=== PATIENT | male | born 1935 | race Asian ===

== ENCOUNTER 2023-01-27 20:55 | Inpatient (IN) | payer OTHER ==
[~2023-01-27] VITALS: Ht 165.1 cm; Wt 46.3 kg
[2023-01-27 21:00] VITALS: BP_SYST 104; PULSE 89; RESP 19; TEMP 98.9; O2SAT 91
[2023-01-27 22:36] LABS: BASOPHILS % (AUTO) 0.1 % (0.0-2.0); HEMATOCRIT 28.8 % (36-54); HEMOGLOBIN 9.6 g/dL (14.0-18.0); LYMPHOCYTES # (AUTO) 0.3 K/uL (1.0-5.5); MEAN CORPUSCULAR HEMOGLOBIN 31 pg (27-31); MEAN CORPUSCULAR HGB CONC 33 % (32-36); MEAN CORPUSCULAR VOLUME 94 fL (79.0-98.0); MONOCYTES # (AUTO) 0.6 K/uL (0.0-1.0); MONOCYTES % (AUTO) 3.8 % (1.7-9.3); NEUTROPHILS % (AUTO) 94.1 % (40.0-70.0); PLATELET COUNT (AUTO) 211 K/uL (130-430); RED BLOOD CELL COUNT(AUTO) 3.06 MIL/uL (4.2-6.2); RED CELL DISTRIBUTION WIDTH 14.5 % (9.0-15.0)
[2023-01-27] MEDS ORDERED: NACL 0.9% 1,000 ML IV ONE (22:45)
[2023-01-27] MEDS ORDERED: PIPERACILLIN/TAZO 3.375 GM in NS 50 ML IV ONE (23:00)
[2023-01-27] MEDS ORDERED: PIPERACILLIN/TAZOBACTAM 3.375 GM/VIAL (ZOSYN) IV ONE (23:28)
[2023-01-27 23:29] LABS: INR 1.2 (0.80-1.20); PROTHROMBIN TIME 12.2 SECS (9.5-12.5)
[2023-01-27 23:53] LABS: ALANINE AMINOTRANSFERASE 13 U/L (12-78); ALBUMIN 2.7 g/dL (3.4-4.8); ANION GAP 16 (5-15); ASPARTATE AMINOTRANSFERASE 15 U/L (10-37); CALCIUM 8.2 mg/dL (8.4-11.0); CARBON DIOXIDE 25 mmol/L (23-29); CHLORIDE 116 mmol/L (98-107); CREATINE KINASE, TOTAL 33 U/L (39-308); CREATININE 3.25 mg/dL (0.55-1.30); GLUCOSE 119 mg/dL (74-106); SALICYLATE 3 mg/dL (3-30); SODIUM SERUM 157 mmol/L (136-145); TOTAL BILIRUBIN 0.7 mg/dL (0.0-1.0); TOTAL PROTEIN, SERUM 6.3 g/dL (6.4-8.3); UREA NITROGEN, BLOOD 95 mg/dL (8-21)
[2023-01-27] MEDS ORDERED: LOSA-415 PO (23:55)
[2023-01-27] MEDS ORDERED: HYDR25TA4 PO (23:55)
[2023-01-27] MEDS ORDERED: DONE10TA44 PO (23:55)
[2023-01-28] VITALS (10 sets, daily range): BP systolic 98–154; PULSE 56–84; RESP 17–18; TEMP 97.4–98.6; O2SAT 95–100
[2023-01-28 00:03] LABS: ACETAMINOPHEN < 1 ug/mL (1-30); ALCOHOL, BLOOD < 3 mg/dL (<10)
[2023-01-28 00:05] LABS: POTASSIUM 2.1 mmol/L (3.5-5.1)
[2023-01-28] MEDS ORDERED: KCL 10 mEq in 50 mL (PREMIX) 50 ML IV ONE (00:30)
[2023-01-28 00:41] LABS: ACETONE, SERUM NEGATIVE (NEGATIVE)
[2023-01-28 00:50] LABS: BILIRUBIN,URINE NEGATIVE (NEGATIVE); BLOOD, URINE 3+ (NEGATIVE); COLOR,URINE YELLOW (YELLOW); GLUCOSE,URINE NEGATIVE (NEGATIVE); KETONES,URINE NEGATIVE (NEGATIVE); LEUKOCYTE ESTERASE ,URINE 1+ (NEGATIVE); NITRITE, URINE NEGATIVE (NEGATIVE); PH,URINE 5.5 (5.0-8.0); PROTEIN URINE NEGATIVE (NEGATIVE); UROBILINOGEN,URINE 0.2 (0.2-1.0)
[2023-01-28 01:13] LABS: INFLUENZA TYPE A negative (NEGATIVE); INFLUENZA TYPE B NEGATIVE (NEGATIVE)
[2023-01-28 01:16] LABS: COVID19 ANTIGEN SOFIA FIA NEGATIVE (NEGATIVE)
[2023-01-28 01:17] LABS: BARBITURATE, URINE NEGATIVE (NEG <=200); BENZODIAZEPINE, URINE NEGATIVE (NEG <=150); CANNABINOID, URINE NEGATIVE (NEG <=50); COCAINE, URINE NEGATIVE (NEG <=150); METHAMPHETAMINES SCREEN,URINE NEGATIVE (NEG <=500); OPIATE, URINE NEGATIVE (NEG <=100); PHENCYCLIDINE SCREEN,URINE NEGATIVE (NEG <=25); URINE AMPHETAMINE NEGATIVE (NEG <=500); URINE METHADONE NEGATIVE (NEG <=200); URINE OXYCODONE SCREEN NEGATIVE (NEG <=100); URINE PROPOXYPHENE SCREEN NEGATIVE (NEG <=300)
[2023-01-28 01:18] LABS: UR TRICYCLIC ANTIDEPRESSANTS NEGATIVE (NEG <=300)
[2023-01-28 01:24] LABS: CLARITY/URINE CLOUDY (CLEAR)
[2023-01-28 01:26] LABS: BACTERIA,URINE FEW /HPF (None Seen); RBC,URINE >100 /HPF (0-3)
[2023-01-28 01:35] LABS: PHOSPHORUS 4.7 mg/dL (2.7-4.5)
[2023-01-28] MEDS: D5/0.45 NS 1,000 ML IV SCH ×2 (04:22→09:29)
[2023-01-28] MEDS: IPRATROPIUM/ALBUTEROL SULFATE 3 ML AMPUL.NEB (DUONEB) INH SCH (08:09)
[2023-01-28 11:26] LABS: BASOPHILS % (AUTO) 0.3 % (0.0-2.0); HEMATOCRIT 27.1 % (36-54); HEMOGLOBIN 8.9 g/dL (14.0-18.0); LYMPHOCYTES # (AUTO) 0.3 K/uL (1.0-5.5); LYMPHOCYTES % (AUTO) 2.1 % (20.5-51.5); MEAN CORPUSCULAR HEMOGLOBIN 31 pg (27-31); MEAN CORPUSCULAR HGB CONC 33 % (32-36); MEAN CORPUSCULAR VOLUME 95 fL (79.0-98.0); MONOCYTES # (AUTO) 0.5 K/uL (0.0-1.0); MONOCYTES % (AUTO) 4.2 % (1.7-9.3); NEUTROPHILS # (AUTO) 11.2 K/uL (1.8-7.7); NEUTROPHILS % (AUTO) 93.4 % (40.0-70.0); PLATELET COUNT (AUTO) 188 K/uL (130-430); RED BLOOD CELL COUNT(AUTO) 2.86 MIL/uL (4.2-6.2); RED CELL DISTRIBUTION WIDTH 14.8 % (9.0-15.0)
[2023-01-28 11:39] LABS: ANION GAP 12 (5-15); CALCIUM 7.9 mg/dL (8.4-11.0); CARBON DIOXIDE 26 mmol/L (23-29); CHLORIDE 119 mmol/L (98-107); CREATININE 2.62 mg/dL (0.55-1.30); GLUCOSE 134 mg/dL (74-106); SODIUM SERUM 157 mmol/L (136-145); UREA NITROGEN, BLOOD 84 mg/dL (8-21)
[2023-01-28] MEDS: LR 1,000 ML IV SCH ×2 (11:39→23:05)
[2023-01-28 11:42] LABS: POTASSIUM 2.1 mmol/L (3.5-5.1)
[2023-01-28] MEDS: POTASSIUM CHLORIDE 40 MEQ in NS 250 ML IV SCH ×2 (11:58→17:27)
[2023-01-28] MEDS: metroNIDAZOLE 250 mg/NS 50 ML IV SCH ×2 (16:18→23:03)
[2023-01-28] MEDS: LEVOFLOXACIN 250 MG/D5W 50 ML IV SCH (21:36)
[2023-01-29] VITALS (9 sets, daily range): BP systolic 129–166; PULSE 54–78; RESP 15–21; TEMP 97.1–98.5; O2SAT 96–99
[2023-01-29 05:26] LABS: EOSINOPHILS % (AUTO) 0.3 % (0.0-4.0); HEMATOCRIT 24.9 % (36-54); HEMOGLOBIN 8.2 g/dL (14.0-18.0); LYMPHOCYTES # (AUTO) 0.4 K/uL (1.0-5.5); LYMPHOCYTES % (AUTO) 4.5 % (20.5-51.5); MEAN CORPUSCULAR HEMOGLOBIN 31 pg (27-31); MEAN CORPUSCULAR HGB CONC 33 % (32-36); MEAN CORPUSCULAR VOLUME 95 fL (79.0-98.0); MONOCYTES # (AUTO) 0.5 K/uL (0.0-1.0); MONOCYTES % (AUTO) 5.8 % (1.7-9.3); NEUTROPHILS # (AUTO) 8.1 K/uL (1.8-7.7); NEUTROPHILS % (AUTO) 89.4 % (40.0-70.0); PLATELET COUNT (AUTO) 163 K/uL (130-430); RED BLOOD CELL COUNT(AUTO) 2.63 MIL/uL (4.2-6.2); RED CELL DISTRIBUTION WIDTH 14.7 % (9.0-15.0)
[2023-01-29 05:55] LABS: ALANINE AMINOTRANSFERASE 9 U/L (12-78); ALBUMIN 2.1 g/dL (3.4-4.8); ANION GAP 11 (5-15); ASPARTATE AMINOTRANSFERASE 16 U/L (10-37); CARBON DIOXIDE 27 mmol/L (23-29); CREATININE 2.07 mg/dL (0.55-1.30); GLUCOSE 103 mg/dL (74-106); TOTAL BILIRUBIN 0.4 mg/dL (0.0-1.0); TOTAL PROTEIN, SERUM 5.2 g/dL (6.4-8.3); UREA NITROGEN, BLOOD 64 mg/dL (8-21)
[2023-01-29] MEDS: LR 1,000 ML IV SCH (06:15)
[2023-01-29 06:16] LABS: CHLORIDE 125 mmol/L (98-107); POTASSIUM 2.6 mmol/L (3.5-5.1); SODIUM SERUM 163 mmol/L (136-145)
[2023-01-29] MEDS: metroNIDAZOLE 250 mg/NS 50 ML IV SCH ×3 (06:44→23:12)
[2023-01-29] MEDS ORDERED: CEFAZOLIN 1 GM IVPB PREMIX 50 ML IV ONE (08:00)
[2023-01-29] MEDS: IPRATROPIUM/ALBUTEROL SULFATE 3 ML AMPUL.NEB (DUONEB) INH SCH ×3 (08:49→20:24)
[2023-01-29] MEDS: POTASSIUM CHLORIDE 40 MEQ in NS 250 ML IV SCH ×2 (08:53→13:27)
[2023-01-29] MEDS: KCL 20 mEq in D5W 1000 mL 1,000 ML IV SCH ×2 (12:33→22:00)
[2023-01-29 12:54] LABS: TOTAL IRON BIND. CAPACITY 112 ug/dL (250-450)
[2023-01-29 13:00] LABS: FREE T4 (FREE THYROXINE) 1.4 ng/dL (0.6-1.6); THYROID STIMULATING HORMONE 0.15 uIu/mL (0.34-4.82)
[2023-01-29] MEDS: LEVOFLOXACIN 250 MG/D5W 50 ML IV SCH (20:56)
[2023-01-30] VITALS (10 sets, daily range): BP systolic 128–160; PULSE 60–82; RESP 15–18; TEMP 97.4–98.6; O2SAT 97–100
[2023-01-30 05:28] LABS: BASOPHILS % (AUTO) 0.1 % (0.0-2.0); EOSINOPHILS # (AUTO) 0.2 K/uL (0.0-0.4); HEMATOCRIT 26.7 % (36-54); HEMOGLOBIN 8.7 g/dL (14.0-18.0); LYMPHOCYTES # (AUTO) 0.4 K/uL (1.0-5.5); LYMPHOCYTES % (AUTO) 5.7 % (20.5-51.5); MEAN CORPUSCULAR HEMOGLOBIN 31 pg (27-31); MEAN CORPUSCULAR HGB CONC 33 % (32-36); MEAN CORPUSCULAR VOLUME 94 fL (79.0-98.0); MONOCYTES # (AUTO) 0.4 K/uL (0.0-1.0); MONOCYTES % (AUTO) 5.9 % (1.7-9.3); NEUTROPHILS # (AUTO) 6.4 K/uL (1.8-7.7); NEUTROPHILS % (AUTO) 85.3 % (40.0-70.0); PLATELET COUNT (AUTO) 178 K/uL (130-430); RED BLOOD CELL COUNT(AUTO) 2.83 MIL/uL (4.2-6.2); RED CELL DISTRIBUTION WIDTH 14.6 % (9.0-15.0); WHITE BLOOD COUNT (AUTO) 7.5 K/uL (4.8-10.8)
[2023-01-30] MEDS: metroNIDAZOLE 250 mg/NS 50 ML IV SCH ×3 (05:43→22:40)
[2023-01-30 06:06] LABS: FOLATE (FOLIC ACID) 19.3 ng/mL (>3.0)
[2023-01-30 06:13] LABS: ANION GAP 10 (5-15); CALCIUM 8.1 mg/dL (8.4-11.0); CARBON DIOXIDE 27 mmol/L (23-29); CREATININE 1.61 mg/dL (0.55-1.30); GLUCOSE 116 mg/dL (74-106); PHOSPHORUS 1.9 mg/dL (2.7-4.5); UREA NITROGEN, BLOOD 42 mg/dL (8-21)
[2023-01-30 06:16] LABS: CHLORIDE 127 mmol/L (98-107); POTASSIUM 2.8 mmol/L (3.5-5.1); SODIUM SERUM 164 mmol/L (136-145)
[2023-01-30] MEDS ORDERED: KCL 40 mEq in D5W 1000 mL 1,000 ML IV SCH (07:15)
[2023-01-30] MEDS: IPRATROPIUM/ALBUTEROL SULFATE 3 ML AMPUL.NEB (DUONEB) INH SCH ×4 (07:50→20:08)
[2023-01-30] MEDS ORDERED: CEFAZOLIN 1 GM IVPB PREMIX 50 ML IV ONE ×2 (08:00→08:59)
[2023-01-30] MEDS: POTASSIUM CHLORIDE 40 MEQ in D5W 250 ML IV SCH ×2 (08:46→13:22)
[2023-01-30] MEDS: KCL 20 mEq in D5W 1000 mL 1,000 ML IV SCH ×2 (08:46→17:25)
[2023-01-30] MEDS ORDERED: CEFAZOLIN 2 GM IVPB PREMIX 50 ML IV ONE (08:51)
[2023-01-30] MEDS ORDERED: MEPERIDINE 100 MG INJ. 100 MG/ML VIAL ONE (09:08)
[2023-01-30] MEDS ORDERED: MIDAZOLAM HCL 5 MG/5 ML VIAL ONE (09:08)
[2023-01-30] MEDS ORDERED: PANTOPRAZOLE SODIUM 40 MG TAB PO ONE (11:00)
[2023-01-30] MEDS ORDERED: PANTOPRAZOLE SODIUM 40 MG/VIAL (PROTONIX) IVP ONE (12:00)
[2023-01-30] MEDS ORDERED: K PHOS 15 MM in D5W 250 ML IV ONE (17:00)
[2023-01-30] MEDS: LEVOFLOXACIN 250 MG/D5W 50 ML IV SCH (20:28)
[2023-01-31] VITALS (9 sets, daily range): BP systolic 121–143; PULSE 70–85; RESP 14–19; TEMP 97.7–98.6; O2SAT 95–100
[2023-01-31] MEDS: KCL 20 mEq in D5W 1000 mL 1,000 ML IV SCH (01:43)
[2023-01-31] MEDS: metroNIDAZOLE 250 mg/NS 50 ML IV SCH ×3 (06:10→22:55)
[2023-01-31 07:12] LABS: BASOPHILS % (AUTO) 0.3 % (0.0-2.0); EOSINOPHILS # (AUTO) 0.3 K/uL (0.0-0.4); EOSINOPHILS % (AUTO) 4.9 % (0.0-4.0); HEMATOCRIT 23.8 % (36-54); HEMOGLOBIN 7.9 g/dL (14.0-18.0); LYMPHOCYTES # (AUTO) 0.5 K/uL (1.0-5.5); LYMPHOCYTES % (AUTO) 6.6 % (20.5-51.5); MEAN CORPUSCULAR HEMOGLOBIN 31 pg (27-31); MEAN CORPUSCULAR HGB CONC 33 % (32-36); MEAN CORPUSCULAR VOLUME 94 fL (79.0-98.0); MONOCYTES # (AUTO) 0.4 K/uL (0.0-1.0); MONOCYTES % (AUTO) 5.5 % (1.7-9.3); NEUTROPHILS # (AUTO) 5.8 K/uL (1.8-7.7); NEUTROPHILS % (AUTO) 82.7 % (40.0-70.0); PLATELET COUNT (AUTO) 134 K/uL (130-430); RED BLOOD CELL COUNT(AUTO) 2.54 MIL/uL (4.2-6.2); RED CELL DISTRIBUTION WIDTH 14.4 % (9.0-15.0)
[2023-01-31 07:15] LABS: ALANINE AMINOTRANSFERASE 11 U/L (12-78); ALBUMIN 2.1 g/dL (3.4-4.8); ANION GAP 8 (5-15); ASPARTATE AMINOTRANSFERASE 22 U/L (10-37); CALCIUM 7.1 mg/dL (8.4-11.0); CARBON DIOXIDE 25 mmol/L (23-29); CREATININE 1.32 mg/dL (0.55-1.30); GLUCOSE 146 mg/dL (74-106); POTASSIUM 3.5 mmol/L (3.5-5.1); SODIUM SERUM 156 mmol/L (136-145); TOTAL BILIRUBIN 0.4 mg/dL (0.0-1.0); TOTAL PROTEIN, SERUM 4.8 g/dL (6.4-8.3); UREA NITROGEN, BLOOD 24 mg/dL (8-21)
[2023-01-31] MEDS: IPRATROPIUM/ALBUTEROL SULFATE 3 ML AMPUL.NEB (DUONEB) INH SCH ×3 (07:23→20:53)
[2023-01-31 07:48] LABS: CHLORIDE 123 mmol/L (98-107)
[2023-01-31] MEDS ORDERED: PANTOPRAZOLE SODIUM 40 MG TAB PO SCH (09:00)
[2023-01-31] MEDS: MULTIVITAMINS TAB 1 TABLET GT SCH (09:09)
[2023-01-31] MEDS: PANTOPRAZOLE SODIUM 40 MG/VIAL (PROTONIX) IVP SCH (09:54)
[2023-01-31] MEDS ORDERED: TAMS0.4C96 PO ×2 (13:12)
[2023-01-31] MEDS ORDERED: TAMSULOSIN HCL 0.4 MG CAP PO ONE (14:00)
[2023-01-31] MEDS: TAMSULOSIN HCL 0.4 MG CAP PO SCH (22:23)
[2023-01-31] MEDS: LEVOFLOXACIN 250 MG/D5W 50 ML IV SCH (22:24)
[2023-02-01] VITALS (7 sets, daily range): BP systolic 112–127; PULSE 72–95; RESP 16–19; TEMP 97.9–98.6; O2SAT 96–100
[2023-02-01] MEDS: KCL 20 mEq in D5W 1000 mL 1,000 ML IV SCH ×2 (02:11→10:51)
[2023-02-01] MEDS ORDERED: AMPICILLIN SODIUM/SULBACTAM NA 1.5 GM VIAL ONE (05:20)
[2023-02-01] MEDS: metroNIDAZOLE 250 mg/NS 50 ML IV SCH ×3 (05:23→21:16)
[2023-02-01] MEDS: AMPICILLIN SODIUM/SULBACTAM NA 1.5 GM in NS 50 ML IV SCH ×3 (06:16→19:44)
[2023-02-01] MEDS: IPRATROPIUM/ALBUTEROL SULFATE 3 ML AMPUL.NEB (DUONEB) INH SCH ×4 (07:38→20:04)
[2023-02-01 08:35] LABS: ALANINE AMINOTRANSFERASE 18 U/L (12-78); ANION GAP 10 (5-15); ASPARTATE AMINOTRANSFERASE 41 U/L (10-37); CARBON DIOXIDE 23 mmol/L (23-29); CHLORIDE 118 mmol/L (98-107); CREATININE 1.19 mg/dL (0.55-1.30); GLUCOSE 108 mg/dL (74-106); PHOSPHORUS 2.1 mg/dL (2.7-4.5); POTASSIUM 3.6 mmol/L (3.5-5.1); SODIUM SERUM 151 mmol/L (136-145); TOTAL BILIRUBIN 0.5 mg/dL (0.0-1.0); TOTAL PROTEIN, SERUM 4.9 g/dL (6.4-8.3); UREA NITROGEN, BLOOD 20 mg/dL (8-21)
[2023-02-01] MEDS: PANTOPRAZOLE SODIUM 40 MG/VIAL (PROTONIX) IVP SCH (08:45)
[2023-02-01 08:47] LABS: BASOPHILS % (AUTO) 0.1 % (0.0-2.0); EOSINOPHILS # (AUTO) 0.4 K/uL (0.0-0.4); HEMATOCRIT 24.6 % (36-54); HEMOGLOBIN 8.1 g/dL (14.0-18.0); LYMPHOCYTES # (AUTO) 0.6 K/uL (1.0-5.5); LYMPHOCYTES % (AUTO) 5.9 % (20.5-51.5); MEAN CORPUSCULAR HEMOGLOBIN 31 pg (27-31); MEAN CORPUSCULAR HGB CONC 33 % (32-36); MEAN CORPUSCULAR VOLUME 94 fL (79.0-98.0); MONOCYTES # (AUTO) 0.4 K/uL (0.0-1.0); MONOCYTES % (AUTO) 4.4 % (1.7-9.3); NEUTROPHILS # (AUTO) 8.1 K/uL (1.8-7.7); NEUTROPHILS % (AUTO) 85.6 % (40.0-70.0); PLATELET COUNT (AUTO) 144 K/uL (130-430); RED BLOOD CELL COUNT(AUTO) 2.63 MIL/uL (4.2-6.2); RED CELL DISTRIBUTION WIDTH 14.8 % (9.0-15.0)
[2023-02-01 08:56] LABS: CALCIUM 6.9 mg/dL (8.4-11.0)
[2023-02-01 09:06] LABS: WHITE BLOOD COUNT (AUTO) 9.4 K/uL (4.8-10.8)
[2023-02-01] MEDS ORDERED: iohexoL 240 mgI/mL, 50 ML INFUS..BTL IV ONE (09:51)
[2023-02-01] MEDS: MULTIVITAMINS TAB 1 TABLET GT SCH (10:23)
[2023-02-01] MEDS: TAMSULOSIN HCL 0.4 MG CAP PO SCH ×2 (10:27→21:16)
[2023-02-01] MEDS ORDERED: CALCIUM CHLORIDE 1 GM in NS 100 ML IV ONE (12:00)
[2023-02-01] MEDS ORDERED: FUROSEMIDE 40 MG/4 ML VIAL IVP ONE (14:30)
[2023-02-01] MEDS ORDERED: URSO300C7 PO (14:53)
[2023-02-01] MEDS ORDERED: TAMS0.4C96 PO (14:54)
[2023-02-01] MEDS ORDERED: MULT-1094 PO (14:56)
[2023-02-01] MEDS: ursodioL 300 MG CAPSULE PO SCH (21:15)
[2023-02-02] VITALS (9 sets, daily range): BP systolic 93–124; PULSE 65–103; RESP 16–18; TEMP 97.1–98.8; O2SAT 95–100
[2023-02-02] MEDS: AMPICILLIN SODIUM/SULBACTAM NA 1.5 GM in NS 50 ML IV SCH ×4 (00:16→17:43)
[2023-02-02] MEDS: metroNIDAZOLE 250 mg/NS 50 ML IV SCH ×3 (05:05→22:19)
[2023-02-02] MEDS: KCL 20 mEq in D5W 1000 mL 1,000 ML IV SCH (06:06)
[2023-02-02] MEDS: IPRATROPIUM/ALBUTEROL SULFATE 3 ML AMPUL.NEB (DUONEB) INH SCH ×4 (07:10→23:54)
[2023-02-02 08:15] LABS: ALANINE AMINOTRANSFERASE 25 U/L (12-78); ALBUMIN 2.1 g/dL (3.4-4.8); ANION GAP 8 (5-15); ASPARTATE AMINOTRANSFERASE 42 U/L (10-37); CALCIUM 7.3 mg/dL (8.4-11.0); CARBON DIOXIDE 25 mmol/L (23-29); CHLORIDE 110 mmol/L (98-107); CREATININE 1.41 mg/dL (0.55-1.30); GLUCOSE 121 mg/dL (74-106); POTASSIUM 4.2 mmol/L (3.5-5.1); SODIUM SERUM 143 mmol/L (136-145); TOTAL BILIRUBIN 0.4 mg/dL (0.0-1.0); TOTAL PROTEIN, SERUM 4.9 g/dL (6.4-8.3); UREA NITROGEN, BLOOD 30 mg/dL (8-21)
[2023-02-02 08:17] LABS: BASOPHILS % (AUTO) 0.2 % (0.0-2.0); EOSINOPHILS # (AUTO) 0.3 K/uL (0.0-0.4); EOSINOPHILS % (AUTO) 2.7 % (0.0-4.0); HEMATOCRIT 25.6 % (36-54); HEMOGLOBIN 8.4 g/dL (14.0-18.0); LYMPHOCYTES # (AUTO) 0.4 K/uL (1.0-5.5); LYMPHOCYTES % (AUTO) 3.7 % (20.5-51.5); MEAN CORPUSCULAR HEMOGLOBIN 31 pg (27-31); MEAN CORPUSCULAR HGB CONC 33 % (32-36); MEAN CORPUSCULAR VOLUME 94 fL (79.0-98.0); MONOCYTES # (AUTO) 0.5 K/uL (0.0-1.0); MONOCYTES % (AUTO) 4.5 % (1.7-9.3); NEUTROPHILS # (AUTO) 9.4 K/uL (1.8-7.7); NEUTROPHILS % (AUTO) 88.9 % (40.0-70.0); PLATELET COUNT (AUTO) 132 K/uL (130-430); RED BLOOD CELL COUNT(AUTO) 2.71 MIL/uL (4.2-6.2); RED CELL DISTRIBUTION WIDTH 14.9 % (9.0-15.0); WHITE BLOOD COUNT (AUTO) 10.6 K/uL (4.8-10.8)
[2023-02-02] MEDS ORDERED: FUROSEMIDE 40 MG/4 ML VIAL IVP SCH (09:00)
[2023-02-02] MEDS: ursodioL 300 MG CAPSULE PO SCH ×2 (09:31→21:49)
[2023-02-02] MEDS: MULTIVITAMINS TAB 1 TABLET GT SCH (09:31)
[2023-02-02] MEDS: PANTOPRAZOLE SODIUM 40 MG/VIAL (PROTONIX) IVP SCH (09:31)
[2023-02-02] MEDS: TAMSULOSIN HCL 0.4 MG CAP PO SCH ×2 (09:31→21:51)
[2023-02-02] MEDS ORDERED: AMOX250S64 GT (16:51)
[2023-02-02] MEDS ORDERED: EPOETIN ALFA-EPBX 4,000 UNITS/ML VIAL SUBCUT ONE (18:00)
[2023-02-03] VITALS (10 sets, daily range): BP systolic 109–125; PULSE 73–80; RESP 14–17; TEMP 97–98.1; O2SAT 93–99
[2023-02-03] MEDS: AMPICILLIN SODIUM/SULBACTAM NA 1.5 GM in NS 50 ML IV SCH ×4 (00:11→18:04)
[2023-02-03] MEDS: KCL 20 mEq in D5W 1000 mL 1,000 ML IV SCH ×2 (04:18→21:28)
[2023-02-03 05:04] LABS: BASOPHILS % (AUTO) 0.2 % (0.0-2.0); EOSINOPHILS # (AUTO) 0.3 K/uL (0.0-0.4); EOSINOPHILS % (AUTO) 3.5 % (0.0-4.0); HEMATOCRIT 22.5 % (36-54); HEMOGLOBIN 7.5 g/dL (14.0-18.0); LYMPHOCYTES # (AUTO) 0.6 K/uL (1.0-5.5); LYMPHOCYTES % (AUTO) 8.1 % (20.5-51.5); MEAN CORPUSCULAR HEMOGLOBIN 31 pg (27-31); MEAN CORPUSCULAR HGB CONC 34 % (32-36); MEAN CORPUSCULAR VOLUME 92 fL (79.0-98.0); MONOCYTES # (AUTO) 0.4 K/uL (0.0-1.0); MONOCYTES % (AUTO) 4.9 % (1.7-9.3); NEUTROPHILS # (AUTO) 6.3 K/uL (1.8-7.7); NEUTROPHILS % (AUTO) 83.3 % (40.0-70.0); PLATELET COUNT (AUTO) 144 K/uL (130-430); RED BLOOD CELL COUNT(AUTO) 2.44 MIL/uL (4.2-6.2); RED CELL DISTRIBUTION WIDTH 14.8 % (9.0-15.0); WHITE BLOOD COUNT (AUTO) 7.6 K/uL (4.8-10.8)
[2023-02-03 05:29] LABS: ALANINE AMINOTRANSFERASE 27 U/L (12-78); ALBUMIN 2.1 g/dL (3.4-4.8); ANION GAP 7 (5-15); ASPARTATE AMINOTRANSFERASE 52 U/L (10-37); CALCIUM 7.4 mg/dL (8.4-11.0); CARBON DIOXIDE 26 mmol/L (23-29); CHLORIDE 111 mmol/L (98-107); CREATININE 1.29 mg/dL (0.55-1.30); GLUCOSE 97 mg/dL (74-106); POTASSIUM 4.1 mmol/L (3.5-5.1); SODIUM SERUM 144 mmol/L (136-145); TOTAL BILIRUBIN 0.6 mg/dL (0.0-1.0); TOTAL PROTEIN, SERUM 4.9 g/dL (6.4-8.3); UREA NITROGEN, BLOOD 27 mg/dL (8-21)
[2023-02-03] MEDS: metroNIDAZOLE 250 mg/NS 50 ML IV SCH ×3 (06:15→21:23)
[2023-02-03] MEDS: IPRATROPIUM/ALBUTEROL SULFATE 3 ML AMPUL.NEB (DUONEB) INH SCH ×4 (08:06→19:22)
[2023-02-03] MEDS: MULTIVITAMINS TAB 1 TABLET GT SCH (09:18)
[2023-02-03] MEDS: TAMSULOSIN HCL 0.4 MG CAP PO SCH ×2 (09:18→21:23)
[2023-02-03] MEDS: ursodioL 300 MG CAPSULE PO SCH ×2 (09:19→21:23)
[2023-02-03] MEDS: PANTOPRAZOLE SODIUM 40 MG/VIAL (PROTONIX) IVP SCH (10:00)
[2023-02-04] VITALS (11 sets, daily range): BP systolic 127–169; PULSE 74–89; RESP 18–19; TEMP 97.2–98.4; O2SAT 93–98
[2023-02-04] MEDS: AMPICILLIN SODIUM/SULBACTAM NA 1.5 GM in NS 50 ML IV SCH ×6 (06:43→23:55)
[2023-02-04] MEDS: metroNIDAZOLE 250 mg/NS 50 ML IV SCH ×3 (06:43→21:45)
[2023-02-04] MEDS: IPRATROPIUM/ALBUTEROL SULFATE 3 ML AMPUL.NEB (DUONEB) INH SCH ×4 (07:16→20:15)
[2023-02-04] MEDS: MULTIVITAMINS TAB 1 TABLET GT SCH (11:11)
[2023-02-04] MEDS: TAMSULOSIN HCL 0.4 MG CAP PO SCH ×2 (11:12→20:53)
[2023-02-04] MEDS: ursodioL 300 MG CAPSULE PO SCH ×2 (11:12→20:51)
[2023-02-04] MEDS: PANTOPRAZOLE SODIUM 40 MG/VIAL (PROTONIX) IVP SCH (11:28)
[2023-02-04] MEDS ORDERED: MENTHOL/ZINC OXIDE 113 GM OINT. TP PRN (12:00)
[2023-02-04] MEDS ORDERED: QUEtiapine FUMARATE 25 MG TABLET PO ONE (18:15)
[2023-02-04] MEDS: KCL 20 mEq in D5W 1000 mL 1,000 ML IV SCH (20:01)
[2023-02-05] VITALS (11 sets, daily range): BP systolic 110–158; PULSE 74–93; RESP 16–20; TEMP 98–99.3; O2SAT 93–98
[2023-02-05 05:05] LABS: BASOPHILS % (AUTO) 0.7 % (0.0-2.0); EOSINOPHILS # (AUTO) 0.3 K/uL (0.0-0.4); EOSINOPHILS % (AUTO) 4.6 % (0.0-4.0); LYMPHOCYTES # (AUTO) 0.6 K/uL (1.0-5.5); LYMPHOCYTES % (AUTO) 9.7 % (20.5-51.5); MEAN CORPUSCULAR HEMOGLOBIN 31 pg (27-31); MEAN CORPUSCULAR HGB CONC 34 % (32-36); MEAN CORPUSCULAR VOLUME 92 fL (79.0-98.0); MONOCYTES # (AUTO) 0.5 K/uL (0.0-1.0); MONOCYTES % (AUTO) 8.5 % (1.7-9.3); NEUTROPHILS # (AUTO) 4.6 K/uL (1.8-7.7); NEUTROPHILS % (AUTO) 76.5 % (40.0-70.0); PLATELET COUNT (AUTO) 208 K/uL (130-430); RED BLOOD CELL COUNT(AUTO) 2.18 MIL/uL (4.2-6.2); RED CELL DISTRIBUTION WIDTH 14.8 % (9.0-15.0)
[2023-02-05] MEDS: AMPICILLIN SODIUM/SULBACTAM NA 1.5 GM in NS 50 ML IV SCH ×4 (05:15→23:59)
[2023-02-05 05:18] LABS: HEMATOCRIT 20.1 % (36-54); HEMOGLOBIN 6.8 g/dL (14.0-18.0)
[2023-02-05 05:28] LABS: ALANINE AMINOTRANSFERASE 24 U/L (12-78); ALBUMIN 2.1 g/dL (3.4-4.8); ANION GAP 7 (5-15); ASPARTATE AMINOTRANSFERASE 36 U/L (10-37); CARBON DIOXIDE 26 mmol/L (23-29); CHLORIDE 110 mmol/L (98-107); CREATININE 1.19 mg/dL (0.55-1.30); GLUCOSE 116 mg/dL (74-106); POTASSIUM 3.5 mmol/L (3.5-5.1); SODIUM SERUM 143 mmol/L (136-145); TOTAL BILIRUBIN 0.5 mg/dL (0.0-1.0); TOTAL PROTEIN, SERUM 4.4 g/dL (6.4-8.3); UREA NITROGEN, BLOOD 18 mg/dL (8-21)
[2023-02-05 05:35] LABS: CALCIUM 6.6 mg/dL (8.4-11.0)
[2023-02-05] MEDS: metroNIDAZOLE 250 mg/NS 50 ML IV SCH ×3 (05:48→22:20)
[2023-02-05] MEDS: IPRATROPIUM/ALBUTEROL SULFATE 3 ML AMPUL.NEB (DUONEB) INH SCH ×4 (07:17→19:33)
[2023-02-05] MEDS ORDERED: QUEtiapine FUMARATE 25 MG TABLET PO SCH ×2 (09:00→18:00)
[2023-02-05] MEDS: TAMSULOSIN HCL 0.4 MG CAP PO SCH ×2 (09:11→20:29)
[2023-02-05] MEDS: ursodioL 300 MG CAPSULE PO SCH ×2 (09:11→20:32)
[2023-02-05] MEDS: MULTIVITAMINS TAB 1 TABLET GT SCH (09:11)
[2023-02-05] MEDS: PANTOPRAZOLE SODIUM 40 MG/VIAL (PROTONIX) IVP SCH (09:11)
[2023-02-05] MEDS ORDERED: QUEtiapine FUMARATE 25 MG TABLET GT ONE (13:00)
[2023-02-05] MEDS: KCL 20 mEq in D5W 1000 mL 1,000 ML IV SCH ×2 (14:50→20:31)
[2023-02-05] MEDS: QUEtiapine FUMARATE 25 MG TABLET GT SCH (20:30)
[2023-02-06] VITALS (13 sets, daily range): BP systolic 110–127; PULSE 68–88; RESP 15–18; TEMP 98.2–98.7; O2SAT 93–100
[2023-02-06] MEDS: metroNIDAZOLE 250 mg/NS 50 ML IV SCH (05:43)
[2023-02-06] MEDS: AMPICILLIN SODIUM/SULBACTAM NA 1.5 GM in NS 50 ML IV SCH ×3 (05:43→17:42)
[2023-02-06 07:03] LABS: ALANINE AMINOTRANSFERASE 24 U/L (12-78); ALBUMIN 2.1 g/dL (3.4-4.8); ANION GAP 7 (5-15); ASPARTATE AMINOTRANSFERASE 35 U/L (10-37); CARBON DIOXIDE 25 mmol/L (23-29); CHLORIDE 108 mmol/L (98-107); CREATININE 1.18 mg/dL (0.55-1.30); GLUCOSE 112 mg/dL (74-106); POTASSIUM 3.6 mmol/L (3.5-5.1); SODIUM SERUM 140 mmol/L (136-145); TOTAL BILIRUBIN 0.7 mg/dL (0.0-1.0); TOTAL PROTEIN, SERUM 4.8 g/dL (6.4-8.3); UREA NITROGEN, BLOOD 14 mg/dL (8-21)
[2023-02-06 07:10] LABS: CALCIUM 6.7 mg/dL (8.4-11.0)
[2023-02-06 07:11] LABS: BASOPHILS % (AUTO) 0.5 % (0.0-2.0); EOSINOPHILS # (AUTO) 0.3 K/uL (0.0-0.4); EOSINOPHILS % (AUTO) 4.5 % (0.0-4.0); HEMOGLOBIN 9.5 g/dL (14.0-18.0); LYMPHOCYTES # (AUTO) 0.6 K/uL (1.0-5.5); MEAN CORPUSCULAR HEMOGLOBIN 31 pg (27-31); MEAN CORPUSCULAR HGB CONC 34 % (32-36); MEAN CORPUSCULAR VOLUME 92 fL (79.0-98.0); MONOCYTES # (AUTO) 0.6 K/uL (0.0-1.0); MONOCYTES % (AUTO) 8.5 % (1.7-9.3); NEUTROPHILS # (AUTO) 5.8 K/uL (1.8-7.7); NEUTROPHILS % (AUTO) 78.5 % (40.0-70.0); PLATELET COUNT (AUTO) 210 K/uL (130-430); RED BLOOD CELL COUNT(AUTO) 3.05 MIL/uL (4.2-6.2); RED CELL DISTRIBUTION WIDTH 15.2 % (9.0-15.0); WHITE BLOOD COUNT (AUTO) 7.4 K/uL (4.8-10.8)
[2023-02-06] MEDS: IPRATROPIUM/ALBUTEROL SULFATE 3 ML AMPUL.NEB (DUONEB) INH SCH ×4 (07:55→19:42)
[2023-02-06] MEDS: MULTIVITAMINS TAB 1 TABLET GT SCH (09:17)
[2023-02-06] MEDS: PANTOPRAZOLE SODIUM 40 MG/VIAL (PROTONIX) IVP SCH (09:17)
[2023-02-06] MEDS: ursodioL 300 MG CAPSULE PO SCH ×2 (09:17→22:10)
[2023-02-06] MEDS: TAMSULOSIN HCL 0.4 MG CAP PO SCH ×2 (09:17→22:10)
[2023-02-06] MEDS: QUEtiapine FUMARATE 25 MG TABLET GT SCH ×4 (09:18→22:10)
[2023-02-06] MEDS ORDERED: CHOLECALCIFEROL (VITAMIN D3) 2,000 UNIT TABLET GT ONE (10:30)
[2023-02-06] MEDS ORDERED: CALCIUM CHLORIDE 1 GM in NS 100 ML IV ONE (11:15)
[2023-02-06] MEDS: KCL 20 mEq in D5W 1000 mL 1,000 ML IV SCH ×2 (11:17→20:30)
[2023-02-06] MEDS ORDERED: SER25 GT ×2 (15:29)
[2023-02-07] VITALS (8 sets, daily range): BP systolic 118–138; PULSE 77–89; RESP 16–19; TEMP 97.2–98.2; O2SAT 93–98
[2023-02-07] MEDS: AMPICILLIN SODIUM/SULBACTAM NA 1.5 GM in NS 50 ML IV SCH ×5 (00:08→22:55)
[2023-02-07 05:03] LABS: BASOPHILS % (AUTO) 0.3 % (0.0-2.0); EOSINOPHILS # (AUTO) 0.2 K/uL (0.0-0.4); EOSINOPHILS % (AUTO) 3.7 % (0.0-4.0); HEMATOCRIT 27.1 % (36-54); LYMPHOCYTES # (AUTO) 0.7 K/uL (1.0-5.5); LYMPHOCYTES % (AUTO) 10.9 % (20.5-51.5); MEAN CORPUSCULAR HEMOGLOBIN 31 pg (27-31); MEAN CORPUSCULAR HGB CONC 33 % (32-36); MEAN CORPUSCULAR VOLUME 92 fL (79.0-98.0); MONOCYTES # (AUTO) 0.5 K/uL (0.0-1.0); NEUTROPHILS % (AUTO) 77.1 % (40.0-70.0); PLATELET COUNT (AUTO) 220 K/uL (130-430); RED BLOOD CELL COUNT(AUTO) 2.94 MIL/uL (4.2-6.2); RED CELL DISTRIBUTION WIDTH 15.1 % (9.0-15.0); WHITE BLOOD COUNT (AUTO) 6.5 K/uL (4.8-10.8)
[2023-02-07] MEDS: KCL 20 mEq in D5W 1000 mL 1,000 ML IV SCH ×2 (05:09→18:24)
[2023-02-07 05:18] LABS: ALANINE AMINOTRANSFERASE 20 U/L (12-78); ANION GAP 9 (5-15); ASPARTATE AMINOTRANSFERASE 30 U/L (10-37); CARBON DIOXIDE 24 mmol/L (23-29); CHLORIDE 108 mmol/L (98-107); CREATININE 1.15 mg/dL (0.55-1.30); GLUCOSE 91 mg/dL (74-106); POTASSIUM 3.5 mmol/L (3.5-5.1); SODIUM SERUM 141 mmol/L (136-145); TOTAL BILIRUBIN 0.7 mg/dL (0.0-1.0); TOTAL PROTEIN, SERUM 4.7 g/dL (6.4-8.3); UREA NITROGEN, BLOOD 12 mg/dL (8-21)
[2023-02-07] MEDS: IPRATROPIUM/ALBUTEROL SULFATE 3 ML AMPUL.NEB (DUONEB) INH SCH ×4 (07:18→20:21)
[2023-02-07] MEDS: TAMSULOSIN HCL 0.4 MG CAP PO SCH ×2 (10:34→22:56)
[2023-02-07] MEDS: PANTOPRAZOLE SODIUM 40 MG/VIAL (PROTONIX) IVP SCH (10:34)
[2023-02-07] MEDS: QUEtiapine FUMARATE 25 MG TABLET GT SCH ×2 (10:34→18:21)
[2023-02-07] MEDS: MULTIVITAMINS TAB 1 TABLET GT SCH (10:34)
[2023-02-07] MEDS: CHOLECALCIFEROL (VITAMIN D3) 2,000 UNIT TABLET GT SCH (10:34)
[2023-02-07] MEDS: ursodioL 300 MG CAPSULE PO SCH ×2 (10:34→22:56)
[2023-02-08] VITALS (9 sets, daily range): BP systolic 127–140; PULSE 81–102; RESP 15–19; TEMP 97.1–98.5; O2SAT 95–99
[2023-02-08] MEDS: IPRATROPIUM/ALBUTEROL SULFATE 3 ML AMPUL.NEB (DUONEB) INH SCH ×3 (07:26→14:59)
[2023-02-08] MEDS: AMPICILLIN SODIUM/SULBACTAM NA 1.5 GM in NS 50 ML IV SCH ×3 (07:28→17:37)
[2023-02-08 07:34] LABS: BASOPHILS % (AUTO) 0.4 % (0.0-2.0); EOSINOPHILS # (AUTO) 0.3 K/uL (0.0-0.4); EOSINOPHILS % (AUTO) 4.3 % (0.0-4.0); HEMATOCRIT 27.2 % (36-54); HEMOGLOBIN 8.9 g/dL (14.0-18.0); LYMPHOCYTES # (AUTO) 0.6 K/uL (1.0-5.5); LYMPHOCYTES % (AUTO) 10.4 % (20.5-51.5); MEAN CORPUSCULAR HEMOGLOBIN 31 pg (27-31); MEAN CORPUSCULAR HGB CONC 33 % (32-36); MEAN CORPUSCULAR VOLUME 93 fL (79.0-98.0); MONOCYTES # (AUTO) 0.5 K/uL (0.0-1.0); MONOCYTES % (AUTO) 7.6 % (1.7-9.3); NEUTROPHILS # (AUTO) 4.7 K/uL (1.8-7.7); NEUTROPHILS % (AUTO) 77.3 % (40.0-70.0); PLATELET COUNT (AUTO) 236 K/uL (130-430); RED BLOOD CELL COUNT(AUTO) 2.93 MIL/uL (4.2-6.2); RED CELL DISTRIBUTION WIDTH 14.5 % (9.0-15.0); WHITE BLOOD COUNT (AUTO) 6.1 K/uL (4.8-10.8)
[2023-02-08 07:51] LABS: ALANINE AMINOTRANSFERASE 20 U/L (12-78); ANION GAP 4 (5-15); ASPARTATE AMINOTRANSFERASE 23 U/L (10-37); CARBON DIOXIDE 26 mmol/L (23-29); CHLORIDE 107 mmol/L (98-107); CREATININE 1.05 mg/dL (0.55-1.30); GLUCOSE 104 mg/dL (74-106); POTASSIUM 3.4 mmol/L (3.5-5.1); SODIUM SERUM 137 mmol/L (136-145); TOTAL BILIRUBIN 0.7 mg/dL (0.0-1.0); TOTAL PROTEIN, SERUM 4.9 g/dL (6.4-8.3); UREA NITROGEN, BLOOD 11 mg/dL (8-21)
[2023-02-08] MEDS: PANTOPRAZOLE SODIUM 40 MG/VIAL (PROTONIX) IVP SCH (08:53)
[2023-02-08] MEDS: TAMSULOSIN HCL 0.4 MG CAP PO SCH (08:56)
[2023-02-08] MEDS: CHOLECALCIFEROL (VITAMIN D3) 2,000 UNIT TABLET GT SCH (08:56)
[2023-02-08] MEDS: MULTIVITAMINS TAB 1 TABLET GT SCH (08:56)
[2023-02-08] MEDS: ursodioL 300 MG CAPSULE PO SCH (08:56)
[2023-02-08] MEDS: KCL 20 mEq in D5W 1000 mL 1,000 ML IV SCH (10:00)
[2023-02-08] MEDS ORDERED: POTASSIUM CHLORIDE 20 MEQ/PKT PACKET PO ONE (12:30)
[2023-02-08] MEDS: QUEtiapine FUMARATE 25 MG TABLET GT SCH (17:38)
== END 2023-02-08 19:30 | disposition hospice, home (50) | DRG 871 ==
LOC: SED 20:55 → EDSEX 20:55 → STU 23:47 → SMU 01-31 19:09
PROVIDERS: ADMIT Internal Medicine; ATTEND Internal Medicine
PROC: 0DB78ZX Excision of Stomach, Pylorus, Via Natural or Artificial Opening Endoscopic, Diagnostic (ICD-10-PCS; principal; 2023-01-30 10:00)
PROC: 0DH64UZ Insertion of Feeding Device into Stomach, Percutaneous Endoscopic Approach (ICD-10-PCS; 2023-01-30 10:00)
PROC: 30233N1 Transfusion of Nonautologous Red Blood Cells into Peripheral Vein, Percutaneous Approach (ICD-10-PCS; 2023-02-05)
DX: A41.81 Sepsis due to Enterococcus (principal); E43 Unspecified severe protein-calorie malnutrition; J69.0 Pneumonitis due to inhalation of food and vomit; I21.A1 Myocardial infarction type 2; G93.41 Metabolic encephalopathy; E87.0 Hyperosmolality and hypernatremia; Z68.1 Body mass index [BMI] 19.9 or less, adult; N39.0 Urinary tract infection, site not specified; N13.6 Pyonephrosis; D62 Acute posthemorrhagic anemia; R13.10 Dysphagia, unspecified; F03.90 Unspecified dementia, unspecified severity, without behavioral disturbance, psychotic disturbance, mood disturbance, and anxiety; Z20.822 Contact with and (suspected) exposure to COVID-19; E83.39 Other disorders of phosphorus metabolism; N40.0 Benign prostatic hyperplasia without lower urinary tract symptoms; K25.9 Gastric ulcer, unspecified as acute or chronic, without hemorrhage or perforation; K29.70 Gastritis, unspecified, without bleeding; Z66 Do not resuscitate; I10 Essential (primary) hypertension; E86.0 Dehydration; E87.6 Hypokalemia; K52.9 Noninfective gastroenteritis and colitis, unspecified; Z87.891 Personal history of nicotine dependence
CPT/HCPCS: 36415; 43239; 43246; 70450-TC; 71045; 74240-TC; 76376; 80048; 80053; 80307; 81000; 82009; 82140; 82550; 82607; 82746; 82962; 83540; 83550; 83605; 83735; 83880; 84100; 84439; 84443; 84484; 85025; 85610-TC; 85730-TC; 86886; 86900; 86901; 86920; 87040; 87081; 87086; 87186-TC; 92610-GN; 93005; 94640; 94760; 96365; 96368; 99291; C9113; G0378; G0480; G0481; G0482; J0295; J0690; J1956; J2175; J2250; J2543; J3480; J3490; J7050; J7060; P9021; Q5106; Q9966